=== PATIENT | female | born 1935 | race Caucasian/White ===

== ENCOUNTER 2020-11-09 15:33 | Emergency (ER) | payer OTHER, MEDICAID ==
[~2020-11-09] VITALS: Ht 152.4 cm; Wt 67.1 kg
[2020-11-09 15:40] VITALS: BP_SYST 140
--- NOTE | 2020-11-09 17:00 | NUR ---
PT PLACED IN ED BED 06
--- NOTE | 2020-11-09 17:05 | NUR ---
PT MEREDITH HERZOG CALLED 911 PT HAS HAD COUGHx3 WEEKS WITH 10/10 THROBBING LOWER ABDOMINAL PAIN RADIATING TO LOWER BACK DENIES NAUSEA/VOMITING/SOB/CP. PT HAS NKDA. PT HAS A HISTORY OF HYPERTENSION AND HIGH CHOLESTEROL. PT CLAIMS SHE HAS BEEN CONSTIPATED AND UNABLE TO PASS STOOL FOR ATLEAST 2 DAYS. PT. VITASL WITHIN NORMAL LIMITS.
--- NOTE | 2020-11-09 17:08 | NUR ---
DR. ELMORE AT BEDSIDE EVALUATING PT STATUS
[2020-11-09] MEDS: KETOROLAC TROMETHAMINE 30 MG VIAL IVP ONE (17:32)
[2020-11-09] MEDS: ONDANSETRON HCL 4 MG/2 ML VIAL IVP ONE (17:35)
[2020-11-09 17:37] LABS: BASOPHILS % (AUTO) 0.5 % (0.0-2.0); EOSINOPHILS % (AUTO) 0.5 % (0.0-4.0); HEMATOCRIT 41.9 % (36-48); HEMOGLOBIN 14.3 g/dL (12.0-16.0); LYMPHOCYTES % (AUTO) 26.8 % (20.5-51.5); MEAN CORPUSCULAR HEMOGLOBIN 30 pg (27-31); MEAN CORPUSCULAR HGB CONC 34 % (32-36); MEAN CORPUSCULAR VOLUME 89 fL (79.0-98.0); MONOCYTES # (AUTO) 0.4 K/uL (0.0-1.0); NEUTROPHILS % (AUTO) 66.2 % (40.0-70.0); PLATELET COUNT (AUTO) 221 K/uL (130-430); RED BLOOD CELL COUNT(AUTO) 4.73 MIL/uL (4.2-6.2); RED CELL DISTRIBUTION WIDTH 13.1 % (9.0-15.0); WHITE BLOOD COUNT (AUTO) 7.5 K/uL (4.8-10.8)
[2020-11-09] MEDS: NS 500 ML IV ONE (17:43)
[2020-11-09 17:54] LABS: CALCIUM 9.6 mg/dL (8.4-11.0); CHLORIDE 102 mmol/L (98-107); CREATININE 1.01 mg/dL (0.55-1.30); GLUCOSE 104 mg/dL (70-99); UREA NITROGEN, BLOOD 26 mg/dL (8-21)
[2020-11-09] MEDS ORDERED: MAGNESIUM CITRATE 300 ML ORAL SOLUTION ONE (18:01)
[2020-11-09 18:02] LABS: ALANINE AMINOTRANSFERASE 48 U/L (12-78); ALBUMIN 4.2 g/dL (3.4-4.8); ASPARTATE AMINOTRANSFERASE 34 U/L (10-37); TOTAL BILIRUBIN 0.9 mg/dL (0.0-1.0)
--- NOTE | 2020-11-09 18:02 | NUR ---
PT CONTINUES TO HAVE 10/10 PAIN ABDOMINAL PAIN RADIATING TO THE LOWER BACK ER MD ELMORE AWARE PT HAVING PAIN ASSOCIATED WITH CONSTIPATION WILL CONITNUE TO MONITOR
[2020-11-09] MEDS: MAGNESIUM CITRATE 300 ML ORAL SOLUTION PO ONE (18:03)
[2020-11-09 18:07] LABS: ANION GAP 14 (5-15); SODIUM SERUM 140 mmol/L (136-145)
--- NOTE | 2020-11-09 18:08 | NUR ---
BEDSIDE COVID NASAL SWAB PERFORMED PT TOLERATED WELL SAMPLE SENT TO LAB AWAITING RESULTS
[2020-11-09 18:42] LABS: POTASSIUM 2.6 mmol/L (3.5-5.1)
[2020-11-09] MEDS: MAGNESIUM SULFATE 50 ML IV ONE (19:26)
[2020-11-09] MEDS: POTASSIUM CHLORIDE 20 MEQ TAB.PRT.SR PO ONE (19:27)
--- NOTE | 2020-11-09 19:33 | NUR ---
BEDSIDE REPORT GIVEN TO SANITORLUCIO ZARATE WHO WILL ASSUME CARE
--- NOTE | 2020-11-09 19:35 | NUR ---
Report received from Amirah VALDES for continuation of care
--- NOTE | 2020-11-09 19:40 | NUR ---
Pt to receive medications and discharge after medications given.
--- NOTE | 2020-11-09 20:28 | NUR ---
Daughter Thais Zepeda [phone]
--- NOTE | 2020-11-09 20:54 | NUR ---
Patient given written and verbal discharge instructions and verbalizes understanding. ER MD discussed with patient the results and treatment provided. Patient in stable condition. ID arm band removed. IV catheter removed intact and dressing applied, no active bleeding. Rx of tramadol, miralax, mineral oil given. Patient educated on pain management and to follow up with PMD. Opportunity for questions provided and answered. Medication side effect fact sheet provided.
[2020-11-09 20:55] VITALS: BP_SYST 112
== END 2020-11-09 20:55 | disposition home or self-care (01) ==
LOC: SED 15:33
DX: K59.00 Constipation, unspecified (principal); R10.84 Generalized abdominal pain; I10 Essential (primary) hypertension; Z20.828 Contact with and (suspected) exposure to other viral communicable diseases
CPT/HCPCS: 36415; 74176; 76376; 80053; 84484; 85025; 87426; 93005; 96361; 96365; 96366; 96375; 96376; 99285; J1885; J2405; J3475; J7030